=== PATIENT | male | born 1955 | race Caucasian/White ===

== ENCOUNTER 2016-07-06 07:47 | Day surgery (SDC) | payer OTHER ==
--- NOTE | 2016-07-05 20:50 | HP ---
SARAHI MCGARRY [id number] HISTORY OF PRESENT ILLNESS: Sarahi is a 60-year-old patient of mine who presents for a painful calcaneal spur on the back side of his right foot. He has fought this problem off and on for the past several years and has gotten progressively worse with this over the past several months. He states now he can barely walk without having persistent pain in the back side of that heel. PAST MEDICAL HISTORY: Significant for: 1. Diabetes, with neuropathy. 2. Large bone spurs on the balls of his feet secondary to gouty arthritis. ALLERGIES: No known drug allergies. CURRENT MEDICATIONS: He takes: 1. Metformin. 2. Lisinopril. 3. Insulin. 4. Gabapentin. 5. Lipitor. 6. Baby aspirin. 7. Allopurinol. FAMILY HISTORY: Significant for diabetes. SOCIAL HISTORY: He denies any tobacco or alcohol use. He is . PHYSICAL EXAMINATION: VITAL SIGNS: Blood pressure 126/88. Pulse of 82 and regular. HEENT: Head is normocephalic. No scars or masses noted. No abnormality noted on external exam of the ears and eyes. Throat shows no masses or inflammation. LUNGS: Show normal ossification in all masters. HEART: Shows no murmurs or gallops. Normal sinus rhythm. LOWER EXTREMITIES: Pedal pulses intact. Filling time of 2-3 seconds. Color of skin is pink. NEUROLOGIC: Gross sensation intact bilaterally. DERMATOLOGIC: Temperature, texture and turgor within normal limits. MUSCULOSKELETAL: He has 5-10 degrees of dorsiflexion in the ankle on the right side. There is a large bump on the posterior aspect of the heel on the lateral side. This is consistent with x-ray findings which show a large retrocalcaneal bone spur, possible bursa involved as well. PLAN: We are scheduling him for a retrocalcaneal exostectomy. This will be done under general anesthetic with local block. All risks and complications inherent to the procedure are gone over with the patient and he understands these. There are no contraindications in his medical history. He will be scheduled at [facility] on 07/06/2016.
[~2016-07-06 07:47] MED LIST: CEFAZOLIN SODIUM 2 GRAM PREMIX 100 ML IV ONE; CEFAZOLIN SODIUM 2 GRAM PREMIX 100 ML IV PRN; IV START KIT ONE; LACTATED RINGERS 1,000 ML ONE
[2016-07-06 08:20] LABS: HEMATOCRIT 39.8 % (32.0-52.0); HEMOGLOBIN 13.2 gm/l (14.0-18.0)
[2016-07-06] MEDS ORDERED: MIDAZOLAM HCL 1 MG/ML 2ML VIAL ONE (09:51)
[2016-07-06] MEDS ORDERED: FENTANYL 100 MCG/2 ML VIAL ONE (09:52)
[2016-07-06] MEDS ORDERED: BUPIVACAINE 0.5% (PRES FREE) 30 ML VIAL ONE (10:00)
[2016-07-06] MEDS ORDERED: LIDOCAINE 1% (PRES FREE) 30 ML VIAL ONE (10:00)
[2016-07-06] MEDS ORDERED: BETAMETHASONE ACET 6 MG/ML 5ML VIAL IM ONE (10:08)
[2016-07-06] MEDS ORDERED: PROPOFOL 20 ML IV ONE ×2 (10:32→11:24)
[2016-07-06] MEDS ORDERED: ROCURONIUM BROMIDE 10 MG/ML DOSE IV ONE (10:32)
[2016-07-06] MEDS ORDERED: LIDOCAINE 2% (PRES FREE) 5 ML VIAL ONE (10:32)
[2016-07-06] MEDS ORDERED: DEXAMETHASONE SOD PHOS 4 MG/1 ML VIAL ONE (10:32)
[2016-07-06] MEDS ORDERED: ONDANSETRON 4 MG/2ML 2 ML VIAL ONE (10:32)
[2016-07-06] MEDS ORDERED: DIPHENHYDRAMINE HCL 50 MG/1 ML VIAL ONE (10:32)
[2016-07-06] MEDS ORDERED: NEOSTIGMINE METHYLSULFATE 1 MG/ML DOSE ONE (10:33)
[2016-07-06] MEDS ORDERED: GLYCOPYRROLATE 0.2 MG/ML 1ML VIAL ONE (10:33)
[2016-07-06] MEDS ORDERED: EPHEDRINE SULFATE UD SYR 25 MG 25 MG/5 ML SYRINGE IV ONE (10:36)
[2016-07-06] MEDS ORDERED: FENTANYL 100 MCG/2 ML VIAL IV PRN (10:53)
[2016-07-06] MEDS ORDERED: NALOXONE HCL 0.4 MG/ML VIAL IV PRN (10:53)
[2016-07-06] MEDS ORDERED: PROMETHAZINE HCL 25 MG/ML VIAL IM PRN (10:53)
[2016-07-06] MEDS ORDERED: ATROPINE SULFATE 0.4 MG/1 ML VIAL IV PRN (10:53)
[2016-07-06] MEDS ORDERED: HYDROMORPHONE HCL 1 MG/ML SYRINGE IV PRN (10:53)
[2016-07-06] MEDS ORDERED: ONDANSETRON 4 MG/2ML 2 ML VIAL IV PRN (10:53)
[2016-07-06] MEDS ORDERED: LACTATED RINGERS 1,000 ML IV SCH (11:00)
[2016-07-06] MEDS ORDERED: KETOROLAC TROMETHAMINE 30 MG/ML 1 ML VIAL ONE (11:11)
[2016-07-06] MEDS ORDERED: ON-Q PUMP/ROPIVACAINE 0.2% 450 ML ONE (11:47)
[2016-07-06] MEDS ORDERED: OXYCODONE HCL 5 MG TABLET PO PRN (12:00)
[2016-07-06] MEDS ORDERED: ON-Q PUMP/ROPIVACAINE 0.2% 400 ML in PREMIX BAG 1 EACH NB SCH (12:00)
--- NOTE | 2016-07-07 02:07 | OP ---
SARAHI MCGARRY [id number] DATE OF SURGERY: 07/06/2016 SURGEON: Dr. Sai Mckeon PREOPERATIVE DIAGNOSES: 1. Beryl's deformity. 2. Retrocalcaneal heel spur right foot. POSTOPERATIVE DIAGNOSES: 1. Beryl's deformity. 2. Retrocalcaneal heel spur right foot. 3. Gouty deposits in the back of the heel. PROCEDURE: A RETROCALCANEAL EXOSTECTOMY RIGHT POSTERIOR HEEL. ANESTHESIA: General sedation, with local block to the posterior heel using 20 mL of 1% lidocaine and 1/2% Marcaine. HEMOSTASIS: A thigh tourniquet was inflated to 300 mmHg for a total of 47 minutes right thigh. ESTIMATED BLOOD LOSS: Less than 10 mL. MATERIALS: 3-0 Vicryl, 3-0 PROLENE, one ON-Q pain pump and two size 4.5 Achilles tendon anchors. PROCEDURE: The patient was brought in the OR and was left on the OR gurney while he went under general sedation. Once he was completely anesthetized we moved him onto the OR table into a prone position. Once he was in a prone position I anesthetized the posterior aspect of the right heel with the local anesthetic block. The right foot and leg were then prepped and draped in standard sterile fashion. Using an Esmarch, we had blood from the right foot and leg and inflated the thigh tourniquet at this time. Attention was turned to the posterior aspect of the right heel where more of a J-type incision was made running along the border of the Achilles tendon laterally about 3 cm from the insertion site all the way down to the bottom of the heel and across the posterior aspect of the heel from the medial side of the foot. This incision was deep into the epidermis and dermis. All superficial vessels with Bovie cautery. Using the Metzenbaum scissors, we excised down through the subcutaneous fat to the periosteum and found the heel of the calcaneus. We then traced this incision down to the lateral border at the Achilles tendon and reflected the deep tissues off the Achilles tendon. When we got to the posterior aspect of the heel we encountered a large deposit of gouty tophi in the posterior aspect of the heel, which we sharply divided off. We then reflected the lateral half of the Achilles tendon off the calcaneus, which gave exposure to the retrocalcaneal exostosis. Using a sagittal saw we removed the exostosis and we removed the superior process of the calcaneus. Once we had adequate removal, we took a bone marta and burred all irregularities of the bone smooth and round. We applied bone wax to the posterior aspect of the calcaneus and irrigated the wound. We then reattached the Achilles tendon back to the heel of the calcaneus with two 4.5 Achilles tendon anchors. Once we had adequate reattachment of the tendon and good strength, we checked range of motion of the ankle and noted we could go through almost 10 degrees dorsiflexion and 20 degrees plantarflexion, with no complications or movement of the tendon. We went ahead and then closed the deep structures with 3-0 Vicryl in a simple interrupted fashion and closed the superficial structures in the same manner. We then closed the skin with 3-0 PROLENE in a horizontal mattress fashion. The wound was dressed. He was placed in a posterior splint.
== END 2016-07-06 13:10 | disposition home or self-care (01) ==
LOC: SDC 07:47
PROVIDERS: ATTEND Podiatrist
PROC: 0QBL0ZZ Excision of Right Tarsal, Open Approach (ICD-10-PCS; principal; 2016-07-06)
DX: M77.31 Calcaneal spur, right foot (principal); M92.61 Juvenile osteochondrosis of tarsus, right ankle; M10.9 Gout, unspecified; E11.40 Type 2 diabetes mellitus with diabetic neuropathy, unspecified; Z79.84 Long term (current) use of oral hypoglycemic drugs; Z79.82 Long term (current) use of aspirin